=== PATIENT | male | born 1985 | race Caucasian/White ===

== ENCOUNTER 2020-11-27 10:02 | Emergency (ER) | payer SELFPAY ==
[2020-11-27 11:02] LABS: ANION GAP 14.8 mEq/L (7-13); CHLORIDE,CL 104 mmol/L (98-107); SODIUM,NA 141 mmol/L (136-145)
[2020-11-27 11:03] LABS: ACETAMINOPHEN 0 ug/mL (10-30 (Therapeutic))
[2020-11-27 11:04] LABS: AMPHETAMINES,URINE NEGATIVE (NEGATIVE); BARBITURATES,URINE NEGATIVE (NEGATIVE); BENZODIAZEPINE,URINE NEGATIVE (NEGATIVE); MDMA (ECSTASY), URINE NEGATIVE (NEGATIVE); METHADONE,URINE NEGATIVE (NEGATIVE); METHAMPHETAMINES,URINE NEGATIVE (NEGATIVE); OPIATES,URINE NEGATIVE (NEGATIVE); OXYCODONE,URINE NEGATIVE (NEGATIVE); PHENCYCLIDINE,URINE NEGATIVE (NEGATIVE); TCA,URINE NEGATIVE (NEGATIVE)
--- NOTE | 2020-11-27 11:15 | EDM.PDOC ---
ED HPI GENERAL MEDICAL PROBLEM - General Stated Complaint: BY AMBULANCE Time Seen by Provider: 11/27/20 10:25 Source of Information: Reports: Patient History Limitations: Reports: No Limitations - History of Present Illness INITIAL COMMENTS - FREE TEXT/NARRATIVE: This 35 yo male patient was brought to the ED by [facility] due to excessive alcohol use, liver failure, abdominal bloating, leg edema and suicidal ideation. The patient reports he has been drinking "a lot" of alcohol daily for years. The patient reports the last day without alcohol was 4-5 years ago. The patient reports he has been on "water pills" intermittently for years due to swelling. The patient reports his abdomen is more swollen today than normally. The patient reports his abdominal swelling and lower extremity swelling has been coming and going for years. The patient reports he is ready to stop drinking alcohol. The patient has moved to our area from [place] due to having family in the area. The patient denies any additional drug or alcohol use. The patient reports he has been thinking of hanging himself at this time. Duration: Day(s):, Constant, Getting Worse Location: Reports: Abdomen, Lower Extremity, Left, Lower Extremity, Right, Other Quality: Reports: Other Severity: Moderate Improves with: Reports: None Worsens with: Reports: None Context: Reports: Other Associated Symptoms: Reports: No Other Symptoms Abdomen Pain Score (Numeric/FACES): 5 - Related Data Allergies Allergy/AdvReac Type Severity Reaction Status Date / Time Penicillins Allergy Rash Verified 11/27/20 10:24 Home Meds: Home Meds . [No Known Home Meds] 11/27/20 [History] Past Medical History HEENT History: Reports: Other (See Below) Other HEENT History: lazy eye, wore glasses and corrected Other Cardiovascular History: pericarditis when 16 years Respiratory History: Reports: None Gastrointestinal History: Reports: Cirrhosis, Fatty Liver, Hepatitis, Jaundice Genitourinary History: Reports: None Musculoskeletal History: Reports: Back Pain, Chronic Neurological History: Reports: None Psychiatric History: Reports: Addiction, Anxiety, Depression, Panic Attack, Suicide Attempt, Suicidal Ideation Hematologic History: Reports: None Immunologic History: Reports: None Oncologic (Cancer) History: Reports: None Other Dermatologic History: having scabbing lately - Infectious Disease History Infectious Disease History: Reports: None Social & Family History - Tobacco Use Tobacco Use Status *Q: Current Every Day Tobacco User Years of Tobacco use: 20 Packs/Tins Daily: 0.5 Second Hand Smoke Exposure: No - Caffeine Use Caffeine Use: Reports: Energy Drinks, Soda - Alcohol Use Days Per Week of Alcohol Use: 7 Number of Drinks Per Day: 15 Total Drinks Per Week: 105 Date of Last Drink: 11/27/20 Time of Last Drink: 09:00 - Recreational Drug Use Recreational Drug Use: No ED ROS GENERAL - Review of Systems Review Of Systems: Comprehensive ROS is negative, except as noted in HPI. ED EXAM, GENERAL - Physical Exam Exam: See Below Exam Limited By: No Limitations General Appearance: Alert, WD/WN, Moderate Distress Eye Exam: Bilateral Eye: EOMI, Normal Inspection, PERRL Ears: Normal External Exam, Normal Canal, Hearing Grossly Normal, Normal TMs Nose: Normal Inspection, Normal Mucosa, No Blood Throat/Mouth: Normal Inspection, Normal Lips, Normal Teeth, Normal Gums, Normal Oropharynx, Normal Voice, No Airway Compromise Head: Atraumatic, Normocephalic Neck: Normal Inspection, Supple, Non-Tender, Full Range of Motion Respiratory/Chest: No Respiratory Distress, Lungs Clear, Normal Breath Sounds, No Accessory Muscle Use, Chest Non-Tender Cardiovascular: Normal Peripheral Pulses, Regular Rate, Rhythm, No Gallop, No JVD, No Murmur, No Rub GI/Abdominal: Distended, Tender (diffuse) (Male) Exam: Deferred Rectal (Males) Exam: Deferred Back Exam: Normal Inspection, Full Range of Motion, NT Extremities: Pedal Edema Neurological: Alert, Oriented, CN II-XII Intact, Normal Cognition, Normal Gait, Normal Reflexes, No Motor/Sensory Deficits Psychiatric: Normal Affect, Normal Mood Skin Exam: Warm, Dry, Normal Color, No Rash, Other (scabbed areas from excoriations on his back. ) Lymphatic: No Adenopathy Course - Vital Signs Last Recorded V/S: Last Vital Signs Temp 99.3 F 11/27/20 10:15 Pulse 117 H 11/27/20 10:15 Resp 20 11/27/20 10:15 BP 152/86 H 11/27/20 10:15 Pulse Ox 95 11/27/20 10:15 - Orders/Labs/Meds Orders: Active Orders 24 hr Category Date Time Status Suicide Precautions [RC] .Per Facility Policy Care 11/27/20 10:38 Active CULTURE BLOOD [BC] Stat Lab 11/27/20 10:19 Received LACTIC ACID [CHEM] Routine Lab 11/27/20 13:56 Received Labs: Laboratory Tests 11/27/20 11/27/20 11/27/20 Range/Units 10:19 10:19 10:19 WBC 11.4 H (5.0-10.0) 10^3/uL RBC 3.43 L (4.6-6.2) 10^6/uL Hgb 11.0 L (14.0-18.0) g/dL Hct 33.3 L (40.0-54.0) % MCV 97.1 (80-100) fL MCH 32.1 (27.0-34.0) pg MCHC 33.0 (33.0-35.0) g/dL Plt Count 113 L (150-450) 10^3/uL Neut % (Auto) 71.5 (42.2-75.2) % Lymph % (Auto) 16.8 L (20.5-50.1) % Emmet % (Auto) 9.6 H (2-8) % Eos % (Auto) 1.6 (1.0-3.0) % Baso % (Auto) 0.5 (0.0-1.0) % Sodium 141 (136-145) mmol/L Potassium 2.8 L (3.5-5.1) mmol/L Chloride 104 (98-107) mmol/L Carbon Dioxide 25 (21-32) mmol/L Anion Gap 14.8 H (7-13) mEq/L BUN 5 L (7-18) mg/dL Creatinine 0.75 (0.70-1.30) mg/dL Est Cr Clr Drug Dosing 143.63 mL/min Estimated GFR (MDRD) > 60 BUN/Creatinine Ratio 6.7 (No establ ref range) Glucose 133 H (70-99) mg/dL Lactic Acid (0.4-2.0) mmol/L Calcium 7.8 L (8.5-10.1) mg/dL Magnesium 1.6 L (1.8-2.4) mg/dL Total Bilirubin 2.3 H (0.2-1.0) mg/dL AST 79 H (15-37) U/L ALT 31 (16-63) U/L Alkaline Phosphatase 205 H (46-116) U/L Ammonia 72 H (11-32) umol/L B-Natriuretic Peptide 43 (0-100) pg/ml Total Protein 7.4 (6.4-8.2) g/dL Albumin 2.7 L (3.4-5.0) g/dL Globulin 4.7 Albumin/Globulin Ratio 0.57 Amylase 30 (25-115) U/L Lipase 192 (73-393) U/L Urine Color (YELLOW) Urine Appearance (CLEAR) Urine pH (5.0-9.0) Ur Specific Clayton (1.005-1.030) Urine Protein (NEGATIVE) Urine Glucose (UA) (NEGATIVE) Urine Ketones (NEGATIVE) Urine Occult Blood (NEGATIVE) Urine Nitrite (NEGATIVE) Urine Bilirubin (NEGATIVE) Urine Urobilinogen (0.2-1.0) mg/dL Ur Leukocyte Esterase (NEGATIVE) Urine RBC (0-5) /HPF Urine WBC (0-5/HPF) /HPF Ur Epithelial Cells (NOT SEEN) /HPF Amorphous Sediment (NOT SEEN) /HPF Urine Bacteria (0-FEW/HPF) /HPF Urine Mucus (NOT SEEN) /LPF Salicylates (2.8-20(Therapeutic)) mg/dL Urine Opiates Screen (NEGATIVE) Ur Oxycodone Screen (NEGATIVE) Urine Methadone Screen (NEGATIVE) Acetaminophen 0 L (10-30 (Therapeutic)) ug/mL Ur Barbiturates Screen (NEGATIVE) U Tricyclic Antidepress (NEGATIVE) Ur Phencyclidine Scrn (NEGATIVE) Ur Amphetamine Screen (NEGATIVE) U Methamphetamines Scrn (NEGATIVE) Urine MDMA Screen (NEGATIVE) U Benzodiazepines Scrn (NEGATIVE) Urine Cocaine Screen (NEGATIVE) U Marijuana (THC) Screen (NEGATIVE) Ethyl Alcohol 238 (0) mg/dL 11/27/20 11/27/20 11/27/20 Range/Units 10:19 10:19 10:43 WBC (5.0-10.0) 10^3/uL RBC (4.6-6.2) 10^6/uL Hgb (14.0-18.0) g/dL Hct (40.0-54.0) % MCV (80-100) fL MCH (27.0-34.0) pg MCHC (33.0-35.0) g/dL Plt Count (150-450) 10^3/uL Neut % (Auto) (42.2-75.2) % Lymph % (Auto) (20.5-50.1) % Emmet % (Auto) (2-8) % Eos % (Auto) (1.0-3.0) % Baso % (Auto) (0.0-1.0) % Sodium (136-145) mmol/L Potassium (3.5-5.1) mmol/L Chloride (98-107) mmol/L Carbon Dioxide (21-32) mmol/L Anion Gap (7-13) mEq/L BUN (7-18) mg/dL Creatinine (0.70-1.30) mg/dL Est Cr Clr Drug Dosing mL/min Estimated GFR (MDRD) BUN/Creatinine Ratio (No establ ref range) Glucose (70-99) mg/dL Lactic Acid 4.8 H* (0.4-2.0) mmol/L Calcium (8.5-10.1) mg/dL Magnesium (1.8-2.4) mg/dL Total Bilirubin (0.2-1.0) mg/dL AST (15-37) U/L ALT (16-63) U/L Alkaline Phosphatase (46-116) U/L Ammonia (11-32) umol/L B-Natriuretic Peptide (0-100) pg/ml Total Protein (6.4-8.2) g/dL Albumin (3.4-5.0) g/dL Globulin Albumin/Globulin Ratio Amylase (25-115) U/L Lipase (73-393) U/L Urine Color Dark yellow (YELLOW) Urine Appearance Clear (CLEAR) Urine pH 6.0 (5.0-9.0) Ur Specific Clayton 1.025 (1.005-1.030) Urine Protein Negative (NEGATIVE) Urine Glucose (UA) Negative (NEGATIVE) Urine Ketones Trace H (NEGATIVE) Urine Occult Blood Trace-intact H (NEGATIVE) Urine Nitrite Negative (NEGATIVE) Urine Bilirubin Small H (NEGATIVE) Urine Urobilinogen 4.0 H (0.2-1.0) mg/dL Ur Leukocyte Esterase Negative (NEGATIVE) Urine RBC 5-10 H (0-5) /HPF Urine WBC 0-5 (0-5/HPF) /HPF Ur Epithelial Cells Rare (NOT SEEN) /HPF Amorphous Sediment Rare (NOT SEEN) /HPF Urine Bacteria Rare (0-FEW/HPF) /HPF Urine Mucus Few H (NOT SEEN) /LPF Salicylates < 2.8 L (2.8-20(Therapeutic)) mg/dL Urine Opiates Screen (NEGATIVE) Ur Oxycodone Screen (NEGATIVE) Urine Methadone Screen (NEGATIVE) Acetaminophen (10-30 (Therapeutic)) ug/mL Ur Barbiturates Screen (NEGATIVE) U Tricyclic Antidepress (NEGATIVE) Ur Phencyclidine Scrn (NEGATIVE) Ur Amphetamine Screen (NEGATIVE) U Methamphetamines Scrn (NEGATIVE) Urine MDMA Screen (NEGATIVE) U Benzodiazepines Scrn (NEGATIVE) Urine Cocaine Screen (NEGATIVE) U Marijuana (THC) Screen (NEGATIVE) Ethyl Alcohol (0) mg/dL 11/27/20 Range/Units 10:43 WBC (5.0-10.0) 10^3/uL RBC (4.6-6.2) 10^6/uL Hgb (14.0-18.0) g/dL Hct (40.0-54.0) % MCV (80-100) fL MCH (27.0-34.0) pg MCHC (33.0-35.0) g/dL Plt Count (150-450) 10^3/uL Neut % (Auto) (42.2-75.2) % Lymph % (Auto) (20.5-50.1) % Emmet % (Auto) (2-8) % Eos % (Auto) (1.0-3.0) % Baso % (Auto) (0.0-1.0) % Sodium (136-145) mmol/L Potassium (3.5-5.1) mmol/L Chloride (98-107) mmol/L Carbon Dioxide (21-32) mmol/L Anion Gap (7-13) mEq/L BUN (7-18) mg/dL Creatinine (0.70-1.30) mg/dL Est Cr Clr Drug Dosing mL/min Estimated GFR (MDRD) BUN/Creatinine Ratio (No establ ref range) Glucose (70-99) mg/dL Lactic Acid (0.4-2.0) mmol/L Calcium (8.5-10.1) mg/dL Magnesium (1.8-2.4) mg/dL Total Bilirubin (0.2-1.0) mg/dL AST (15-37) U/L ALT (16-63) U/L Alkaline Phosphatase (46-116) U/L Ammonia (11-32) umol/L B-Natriuretic Peptide (0-100) pg/ml Total Protein (6.4-8.2) g/dL Albumin (3.4-5.0) g/dL Globulin Albumin/Globulin Ratio Amylase (25-115) U/L Lipase (73-393) U/L Urine Color (YELLOW) Urine Appearance (CLEAR) Urine pH (5.0-9.0) Ur Specific Clayton (1.005-1.030) Urine Protein (NEGATIVE) Urine Glucose (UA) (NEGATIVE) Urine Ketones (NEGATIVE) Urine Occult Blood (NEGATIVE) Urine Nitrite (NEGATIVE) Urine Bilirubin (NEGATIVE) Urine Urobilinogen (0.2-1.0) mg/dL Ur Leukocyte Esterase (NEGATIVE) Urine RBC (0-5) /HPF Urine WBC (0-5/HPF) /HPF Ur Epithelial Cells (NOT SEEN) /HPF Amorphous Sediment (NOT SEEN) /HPF Urine Bacteria (0-FEW/HPF) /HPF Urine Mucus (NOT SEEN) /LPF Salicylates (2.8-20(Therapeutic)) mg/dL Urine Opiates Screen Negative (NEGATIVE) Ur Oxycodone Screen Negative (NEGATIVE) Urine Methadone Screen Negative (NEGATIVE) Acetaminophen (10-30 (Therapeutic)) ug/mL Ur Barbiturates Screen Negative (NEGATIVE) U Tricyclic Antidepress Negative (NEGATIVE) Ur Phencyclidine Scrn Negative (NEGATIVE) Ur Amphetamine Screen Negative (NEGATIVE) U Methamphetamines Scrn Negative (NEGATIVE) Urine MDMA Screen Negative (NEGATIVE) U Benzodiazepines Scrn Negative (NEGATIVE) Urine Cocaine Screen Negative (NEGATIVE) U Marijuana (THC) Screen Negative (NEGATIVE) Ethyl Alcohol (0) mg/dL Meds: Medications Discontinued Medications Generic Name Dose Route Start Last Admin Trade Name Freq PRN Reason Stop Dose Admin Multivitamins/Minerals 10 ml/ 1,011.2 mls @ 999 mls/hr 11/27/20 11:31 11/27/20 12:43 Folic Acid 1 mg/ Thiamine HCl IV 11/27/20 12:31 999 mls/hr 100 mg/ Lactated Ringer's ONETIME ONE Administration Iopamidol 100 ml 11/27/20 11:34 11/27/20 12:30 Iopamidol 612 Mg/Ml 100 Ml Bottle IVPUSH 11/27/20 11:35 100 ml ONETIME ONE Administration Departure - Departure Time of Disposition: 13:46 Disposition: DC/Tfer to Acute Hospital 02 Condition: Serious Clinical Impression: Suicidal ideation, Hyperammonemia, ETOH abuse, EtOH dependence Ascites Qualifiers: Ascites type: due to alcoholic cirrhosis Qualified Code(s): K70.31 - Alcoholic cirrhosis of liver with ascites - Discharge Information *PRESCRIPTION DRUG MONITORING PROGRAM REVIEWED*: Not Applicable *COPY OF PRESCRIPTION DRUG MONITORING REPORT IN PATIENT GIANNA: Not Applicable Forms: Interfacility Transfer EMTALA Care Plan Goals: Discussed the patient's history, examination, lab and CT results with Dr. Story (). Dr. Story accepted the patient for continued evaluation and management as an inpatient at [facility]. Once a room is available, [facility] will call with the room number before transfer. The patient will be transported by [facility]. Sepsis Event Note (ED) - Evaluation Sepsis Screening Result: No Definite Risk - Focused Exam Vital Signs: Vital Signs Temp Pulse Resp BP Pulse Ox 11/27/20 10:15 99.3 F 117 H 20 152/86 H 95 - My Orders Last 24 Hours: My Active Orders 11/27/20 10:19 CULTURE BLOOD [BC] Stat 11/27/20 10:38 Suicide Precautions [RC] .Per Facility Policy 11/27/20 13:56 LACTIC ACID [CHEM] Routine - Assessment/Plan Last 24 Hours: My Active Orders 11/27/20 10:19 CULTURE BLOOD [BC] Stat 11/27/20 10:38 Suicide Precautions [RC] .Per Facility Policy 11/27/20 13:56 LACTIC ACID [CHEM] Routine
[2020-11-27] MEDS: Iopamidol 612 MG/ML 100 ML Bottle IVPUSH ONE (12:30)
[2020-11-27] MEDS: MVI, Adult with Vitamin K 10 ML, Folic Acid 1 MG, Thiamine 100 MG in Lactated Ringers 1... IV ONE ×4 (12:43)
--- NOTE | 2020-11-27 12:54 | CT ---
EXAMINATION: Abdomen Pelvis w wo Cont SEX: Male AGE: 35 years CLINICAL HISTORY: 35-year-old alcoholic male smoker with abdominal distention, abnormal ammonia levels and suicidal ideation. No previous exams immediately available at this institution (patient from [place]). Scan technique: Volume acquisition of data from the abdomen and pelvis obtained without oral contrast but before/during/after intravenous infusion 100 cc nonionic Isovue contrast at 4 cc/s via injector (triphasic liver exam) while patient was lying supine on the Siemens multislice scanner [place], [place]. All data archived in the PACS system for storage, reformatting axial/sagittal/coronal planes and study. Interpretation: Abnormal. 1. Fatty, small inhomogeneously dense liver with suggestion of 4.5 cm diameter "mass lesion" upper pole right lobe and similar intrahepatic masslike effect in the lower pole right lobe, behind the gallbladder. Cirrhosis? Malignancy? 2. Massive ascites filling the peritoneum and "bathing" the distended gallbladder (RUQ) with uniformly thin wall (tiny dependent intraluminal gallstone). No abnormal dilatation of intra or extrahepatic biliary ducts. Normal pancreas and spleen is unremarkable. 3. Solitary 4.5 mm round density calcified stone anterior midpole calyx right kidney. No other evidence of nephrolithiasis and no signs of pyelocaliectasis or ureterectasis i.e. no obstructive uropathy. Negative unenhanced urinary bladder. 4. No abdominal or pelvic mass lesion. No mesenteric or retroperitoneal lymphadenopathy. Normal aortoiliac vessels. 5. Asymmetric dependent left pleural effusion with underlying lower lobe atelectasis and/or masslike infiltrate (LLL). 6. No sign of mechanical bowel obstruction or free intraperitoneal air. CONCLUSION: Diseased liver. Ascites. Tiny gallstone and nonobstructing nephrolithiasis right kidney. Left pleural effusion with underlying lower lobe consolidation.
== END 2020-11-27 14:49 ==
LOC: DL.ED 10:02
DX: K70.31 Alcoholic cirrhosis of liver with ascites (principal); F10.20 Alcohol dependence, uncomplicated; E72.20 Disorder of urea cycle metabolism, unspecified; Y90.8 Blood alcohol level of 240 mg/100 ml or more; Z88.0 Allergy status to penicillin; Z72.0 Tobacco use
CPT/HCPCS: 36415; 74178; 80053; 80143; 80179; 80305; 80307; 81001; 82140; 82150; 83605; 83690; 83735; 83880; 85025; 87040; 96365; 99285; J3411; J7120; Q9967; J3490